=== PATIENT | female | born 1995 | race Caucasian/White ===

== ENCOUNTER 2018-08-22 12:03 | Emergency (ER) | payer OTHER ==
[~2018-08-22] VITALS: Ht 152.4 cm; Wt 116.0 kg
== END 2018-08-22 12:55 | disposition home or self-care (01) ==
LOC: ED 12:49 → MERGE 12:49 → ED 12:55
DX: B34.9 Viral infection, unspecified (principal)
CPT/HCPCS: 71046; 99283

== ENCOUNTER 2019-08-02 16:38 | Emergency (ER) | payer OTHER ==
[~2019-08-02] VITALS: Ht 154.9 cm; Wt 118.2 kg
[2019-08-02 16:42] VITALS: BP 141/82
== END 2019-08-02 17:57 | disposition home or self-care (01) ==
LOC: ED 17:50
DX: S93.402A Sprain of unspecified ligament of left ankle, initial encounter (principal); W01.0XXA Fall on same level from slipping, tripping and stumbling without subsequent striking against object, initial encounter; Y93.89 Activity, other specified; Y92.098 Other place in other non-institutional residence as the place of occurrence of the external cause; Y99.8 Other external cause status
CPT/HCPCS: 29540; 99283